=== PATIENT | male | born 1955 | race Two or more races ===

== ENCOUNTER 2017-05-25 02:14 | Emergency (ER) | payer OTHER ==
[~2017-05-25] VITALS: Ht 180.3 cm; Wt 69.7 kg
[2017-05-25 02:15] VITALS: BP 132/84
[2017-05-25] MEDS ORDERED: FLUORESCEIN OPHTHALMIC 1 MG STRIP ONE (02:33)
[2017-05-25] MEDS ORDERED: PROPARACAINE OPHTH 0.5%, 15ML ONE (02:33)
== END 2017-05-25 03:42 | disposition home or self-care (01) ==
LOC: ED 03:10
DX: H10.213 Acute toxic conjunctivitis, bilateral (principal); Z77.098 Contact with and (suspected) exposure to other hazardous, chiefly nonmedicinal, chemicals
CPT/HCPCS: 99283